=== PATIENT | female | born 1955 | race Caucasian/White ===

== ENCOUNTER → 2016-11-01 | Outpatient (CLI) | payer OTHER | LOC: FIMAGING 13:44 | PROVIDERS: ATTEND Family Medicine | DX: Z12.31 Encounter for screening mammogram for malignant neoplasm of breast (principal) | CPT/HCPCS: G0202 ==

== ENCOUNTER 2018-07-01 21:44 | Emergency (ER) | payer OTHER ==
[2018-07-01] MEDS ORDERED: ONDANSETRON 4 MG/2 ML VIAL IVP ONE (22:22)
--- NOTE | 2018-07-01 22:25 | EDPHY ---
H & P Stated Complaint: dizzy, near syncope, L arm feels off, denies pain Time Seen by Provider: 07/01/18 22:06 HPI/ROS: Chief Complaint: Dizziness HPI: 63-year-old woman had the onset of dizziness about 2 hr ago. She says she has a feeling of being off balance with some lightheadedness. Patient states she stood up and felt unsteady as if she or on a rocking below. She has had his similar episodes in the past and was given instructions for a modified Lyubov maneuver by physical therapist. Some nausea, no vomiting. No chest pain or shortness of breath. No fevers or chills. No headache. No new numbness or weakness. Has otherwise been in her usual state health. No urinary urgency or frequency. She did have some lightheadedness for the last couple days intermittently in thought of his dehydration studies she has been drinking a lot of water. ROS: 10 systems were reviewed and were negative except those elements noted in the HPI. PMH: Denies Social History: No smoking, no alcohol, no recreational drug use Family History: non-contributory Physical Exam: Gen: Awake, Alert, No Distress HEENT: Nose: no rhinorrhea Eyes: PERRLA, EOMI, positive nystagmus with rightward gaze Mouth: Moist mucosa Neck: Supple, no JVD Chest: nontender, lungs clear to auscultation Heart: S1, S2 normal, no murmur Abd: Soft, non-tender, no guarding Back: no CVA tenderness, no midline tenderness Ext: no edema, non-tender Skin: no rash Neuro: CN II-XII intact, Sensation grossly intact, Strength 5/5 in bilateral upper and lower extremities, patient has a positive [place]-Hallpike test to the right. - Personal History Current Tetanus/Diphtheria Vaccine: Yes Current Tetanus Diphtheria and Acellular Pertussis (TDAP): Yes - Medical/Surgical History Hx Asthma: No Hx Chronic Respiratory Disease: No Hx Diabetes: No Hx Cardiac Disease: No Hx Renal Disease: No Hx Cirrhosis: No Hx Alcoholism: No Hx HIV/AIDS: No Hx Splenectomy or Spleen Trauma: No Other PMH: 4 spin sx, scoliosis, - Social History Smoking Status: Former smoker Constitutional: Initial Vital Signs Temperature (C) 37.0 C 07/01/18 21:50 Heart Rate 83 07/01/18 21:50 Respiratory Rate 20 07/01/18 21:50 Blood Pressure 194/114 H 07/01/18 21:50 O2 Sat (%) 99 07/01/18 21:50 O2 Delivery Mode Room Air Allergies/Adverse Reactions: No Known Allergies Allergy (Unverified 07/01/18 21:49) Home Medications: Medication Instructions Recorded Acyclovir 1 tab DAILY PRN 04/06/16 CeleBREX 1 tab DAILY 04/06/16 DULoxetine 1 tab DAILY 04/06/16 Hrt Base 1 tab DAILY 04/06/16 Multivitamin (*) 1 tab DAILY 04/06/16 traMADol 1 tab Q6HRS PRN 04/06/16 traZODONE 50MG (*) 1 tab HS 04/06/16 Medical Decision Making ED Course/Re-evaluation: 63-year-old presenting with symptoms consistent with benign positional vertigo. EKG is normal. Symptoms resolved after Lyubov maneuver. Urinalysis is negative. She is feeling improved. Will discharge with follow-up with primary care physician. No evidence of acute infectious or acute cardiac syndrome. - Data Points Laboratory Results: Laboratory Results 07/01/18 22:00 07/01/18 22:00 07/01/18 07/01/18 07/01/18 23:30 22:37 22:00 WBC RBC Hgb Hct MCV MCH MCHC RDW Plt Count MPV Neut % (Auto) Lymph % (Auto) [place] % (Auto) Eos % (Auto) Baso % (Auto) Nucleat RBC Rel Count Absolute Neuts (auto) Absolute Lymphs (auto) Absolute Monos (auto) Absolute Eos (auto) Absolute Basos (auto) Absolute Nucleated RBC Immature Gran % Immature Gran # Sodium 126 mEq/L L mEq/L (135-145) Potassium 3.4 mEq/L L mEq/L (3.5-5.2) Chloride 94 mEq/L L mEq/L (97-110) Carbon Dioxide 24 mEq/l mEq/l (22-31) Anion Gap 8 mEq/L mEq/L (6-14) BUN 12 mg/dL mg/dL (7-23) Creatinine 0.7 mg/dL mg/dL (0.6-1.0) Estimated GFR > 60 Glucose 90 mg/dL mg/dL (70-100) Calcium 9.2 mg/dL mg/dL (8.5-10.4) POC Troponin I 0.00 ng/mL ng/mL (0.00-0.08) Urine Color PALE YELLOW Urine Appearance CLEAR Urine pH 8.0 H (5.0-7.5) Ur Specific [place] 1.009 (1.002-1.030) Urine Protein NEGATIVE (NEGATIVE) Urine Ketones NEGATIVE (NEGATIVE) Urine Blood NEGATIVE (NEGATIVE) Urine Nitrate NEGATIVE (NEGATIVE) Urine Bilirubin NEGATIVE (NEGATIVE) Urine Urobilinogen NEGATIVE EU EU (0.2-1.0) Ur Leukocyte Esterase NEGATIVE (NEGATIVE) Urine Glucose NEGATIVE (NEGATIVE) 07/01/18 22:00 WBC 6.63 10^3/uL 10^3/uL (3.80-9.50) RBC 4.18 10^6/uL 10^6/uL (4.18-5.33) Hgb 13.1 g/dL g/dL (12.6-16.3) Hct 39.2 % % (38.0-47.0) MCV 93.8 fL fL (81.5-99.8) MCH 31.3 pg pg (27.9-34.1) MCHC 33.4 g/dL g/dL (32.4-36.7) RDW 12.5 % % (11.5-15.2) Plt Count 248 10^3/uL 10^3/uL (150-400) MPV 9.2 fL fL (8.7-11.7) Neut % (Auto) 41.8 % % (39.3-74.2) Lymph % (Auto) 45.1 % H % (15.0-45.0) [place] % (Auto) 10.0 % % (4.5-13.0) Eos % (Auto) 2.3 % % (0.6-7.6) Baso % (Auto) 0.6 % % (0.3-1.7) Nucleat RBC Rel Count 0.0 % % (0.0-0.2) Absolute Neuts (auto) 2.78 10^3/uL 10^3/uL (1.70-6.50) Absolute Lymphs (auto) 2.99 10^3/uL 10^3/uL (1.00-3.00) Absolute Monos (auto) 0.66 10^3/uL 10^3/uL (0.30-0.80) Absolute Eos (auto) 0.15 10^3/uL 10^3/uL (0.03-0.40) Absolute Basos (auto) 0.04 10^3/uL 10^3/uL (0.02-0.10) Absolute Nucleated RBC 0.00 10^3/uL 10^3/uL (0-0.01) Immature Gran % 0.2 % % (0.0-1.1) Immature Gran # 0.01 10^3/uL 10^3/uL (0.00-0.10) Sodium Potassium Chloride Carbon Dioxide Anion Gap BUN Creatinine Estimated GFR Glucose Calcium POC Troponin I Urine Color Urine Appearance Urine pH Ur Specific [place] Urine Protein Urine Ketones Urine Blood Urine Nitrate Urine Bilirubin Urine Urobilinogen Ur Leukocyte Esterase Urine Glucose Medications Given: Discontinued Medications Ondansetron HCl (Zofran) 4 mg IVP EDNOW ONE Stop: 07/01/18 22:23 Last Admin: 07/01/18 22:31 Dose: 4 mg Point of Care Test Results: Chemistry 07/01/18 22:37 POC Troponin I 0.00 ng/mL ng/mL (0.00-0.08) Departure - Departure Disposition: Home, Routine, Self-Care Clinical Impression: Benign positional vertigo Condition: Good Instructions: Benign Paroxysmal Positional Vertigo (ED) Additional Instructions: Follow up with primary care physician in 3-4 days if symptoms are not improved. Return to the emergency department for worsening dizziness, shortness of breath , fevers, chills, chest pain, or any other concerns. Referrals: Zoë Lopes MD [Primary Care Provider] - As per Instructions
[2018-07-01 22:31] LABS: PLATELET COUNT 248 10^3/uL (150-400)
[2018-07-02 00:01] VITALS: BP 149/98
--- NOTE | 2018-07-02 02:17 | CPEKG ---
Test Reason : OPEN Blood Pressure : / mmHG Vent. Rate : 067 BPM Atrial Rate : 067 BPM P-R Int : 150 ms QRS Dur : 085 ms QT Int : 424 ms P-R-T Axes : 071 067 054 degrees QTc Int : 448 ms Sinus rhythm Borderline T wave abnormalities Confirmed by Tyson Anguiano ([id number] on 07/02/2018 2:16:51 AM Referred By: Tyson Anguiano Confirmed By:Tyson Anguiano
== END 2018-07-01 23:59 | disposition home or self-care (01) ==
DX: H81.13 Benign paroxysmal vertigo, bilateral (principal)
CPT/HCPCS: 93005; 96374; 99284; J2405; 84484-ER

== ENCOUNTER → 2018-07-31 | Outpatient (CLI) | payer OTHER | LOC: FIMAGING 08:47 | PROVIDERS: ATTEND Family Medicine | DX: Z12.31 Encounter for screening mammogram for malignant neoplasm of breast (principal); Z13.820 Encounter for screening for osteoporosis; M85.89 Other specified disorders of bone density and structure, multiple sites; N95.9 Unspecified menopausal and perimenopausal disorder ==